=== PATIENT | male | born 1960 | race African-American/Black ===

== ENCOUNTER 2018-12-25 06:44 | Day surgery (SDC) | payer MEDICAID ==
--- NOTE | 2018-12-19 15:35 | Pre-Procedure Note/Attestation ---
Pre-Procedure Note/Attestation Complete Prior to Procedure Planned Procedure: right Procedure Narrative: Phaco with IOL Indications for Procedure Pre-Operative Diagnosis: cataract Attestation I attest that I discussed the nature of the procedure; its benefits; risks and complications; and alternatives (and the risks and benefits of such alternatives ), prior to the procedure, with the patient (or the patient's legal labor representative). I attest that, if there was a reasonable possibility of needing a blood transfusion, the patient (or the patient's legal labor representative) was given the [facility] standardized written summary, pursuant to the [place] Blood Safety Act ([place] Health and Safety Code # 1645, as amended). I attest that I re-evaluated the patient just prior to the surgery and that there has been no change in the patient's H&P, except as documented below: Francisco Vicente MD Dec 19, 2018 15:35
--- NOTE | 2018-12-19 15:36 | Opthalmology H&P ---
Ophthalmology H&P H&P Chief Complaint: decreased vision in right eye HPI Vision Affects Ability to: read, focus/use eyes together, manage personal affairs HPI Narrative blurry vision Exam Visual Acuity: OD CF OS 20/80 Tension: OD 20 OS 23 Eye Exam: normal OU: external exam, palpebral fissure-width, marginal reflex distance, levator function, corneas, anterior chambers; findings: lens - OD NS OS NS, fundus exam - MILD npdr ou, INCREASED cd ou Assessment/Plan Diagnosis: (1) Nuclear age-related cataract, right eye Treatment Plan: cataract extraction w/ lens implant Goals of Treatment: improvement of vision, enhance quality of life Attestation Attestation The risks and benefits of the surgery as well as alternative procedures were explained to the patient in detail. Francisco Vicente MD Dec 19, 2018 15:36
[~2018-12-25] VITALS: Ht 174 cm; Wt 99.8 kg
[~2018-12-25 06:44] MED LIST: ATORVASTATIN CA40 MG ORAL; GLIPIZIDE5 MG ORAL; LOSARTAN POTASS50 MG ORAL; METFORMIN HCL1000 M1 ORAL; WARFARIN SODIUM10 MG ORAL
[2018-12-25] MEDS ORDERED: Akten 3.5% 1ml Btl RIGHT EYE ONE (07:00)
[2018-12-25] MEDS ORDERED: Proparacaine 0.5% Opth Soln 15ml RIGHT EYE ONE (07:00)
[2018-12-25] MEDS ORDERED: Tetracaine 0.5% Opth 4ml Soln RIGHT EYE ONE (07:00)
[2018-12-25 09:25] VITALS: BP 144/86
[2018-12-25] MEDS: Tropicamide 1% Opth 15ml Soln RIGHT EYE SCH ×3 (09:28→09:45)
[2018-12-25] MEDS: Diclofenac Sod 0.1% Op Soln RIGHT EYE SCH ×3 (09:28→09:45)
[2018-12-25] MEDS: Tobramycin Op Soln 0.3% 5ml RIGHT EYE SCH ×3 (09:28→09:44)
[2018-12-25] MEDS: Cyclopentolate 1% Opth Sol 2ml RIGHT EYE SCH ×3 (09:28→09:45)
[2018-12-25] MEDS: Phenylephrine 10% Opth Soln 5ml RIGHT EYE SCH ×3 (09:28→09:45)
[2018-12-25] MEDS ORDERED: fentaNYL 100 mcg/2 mL IV ONE (11:30)
[2018-12-25] MEDS ORDERED: Midazolam 2mg/2ml Inj ONE (11:30)
[2018-12-25] MEDS ORDERED: Atropine Inj 1mg/10ml Syr IV PRN (12:00)
[2018-12-25] MEDS ORDERED: DiphenhydrAMINE 50mg/ml Inj IVP PRN (12:00)
[2018-12-25] MEDS ORDERED: LR 1000ml 1,000 ML IVLG SCH (12:00)
[2018-12-25] MEDS ORDERED: Midazolam 2mg/2ml Inj IVP PRN (12:00)
[2018-12-25] MEDS ORDERED: fentaNYL 100 mcg/2 mL IV PRN (12:00)
--- NOTE | 2018-12-25 12:00 | Anethesia Preoperative Eval ---
Anesthesia Pre-op PMH/ROS General Date of Evaluation: Dec 25, 2018 Time of Evaluation: 11:30 Anesthesiologist: bulmaro ASA Score: ASA 3 Mallampati Score Class I : Soft palate, uvula, fauces, pillars visible Class II: Soft palate, uvula, fauces visible Class III: Soft palate, base of uvula visible Class IV: Only hard plate visible Mallampati Classification: Class II Surgeon: neli Diagnosis: nuclear sclerotic cataract right eye Surgical Procedure: cataract extraction w/ iol implant right eye Anesthesia History: none Family History: no anesthesia problems Allergies: Coded Allergies: PENICILLINS (Verified Allergy, Unknown, "swells up", 12/25/18) Medications: see eMAR Patient NPO?: Yes Past Medical History Cardiovascular: Reports: HTN, other - dvt Endocrine: Reports: DM HEENT: Reports: glaucoma Hematology/Immune: Reports: DVT Musculoskeletal/Integumentary: Reports: OA Anesthesia Pre-op Phys. Exam Physician Exam Last Vital Signs Date Time Temp Pulse Resp B/P (MAP) Pulse Ox O2 Delivery O2 Flow Rate FiO2 12/25/18 09:30 Room Air 12/25/18 09:25 97.0 78 18 144/86 97 Constitutional: NAD Neurologic: CN 2-12 intact Cardiovascular: RRR Respiratory: CTA Gastrointestinal: S/NT/ND Airway Exam Mallampati Score: Class II MO: limited Neck: flexible TMD: 2fb ROM: limited Anesthesia Pre-op A/P Risk Assessment & Plan Assessment: asa3 Plan: mac Status Change Before Surgery: No Pre-Antibiotics Drug: Ivana Junior MD Dec 25, 2018 12:00
[2018-12-25 12:04] VITALS: BP 141/90
[2018-12-25 12:09] VITALS: BP 138/90
[2018-12-25 12:14] VITALS: BP 136/80
[2018-12-25 12:30] VITALS: BP 138/93
--- NOTE | 2018-12-25 12:30 | NUR ---
Surgery cancelled. Patient verbalized understanding and will have appointment with his commissions analyst as claimed. Denies discomfort and awaiting ride from his family.
[2018-12-25] MEDS ORDERED: BSS 15ml BTL ONE (13:26)
[2018-12-25] MEDS ORDERED: EPINEPHrine 1mg/1ml Amp ONE (13:26)
[2018-12-25] MEDS ORDERED: Sodium Hyaluronate 14 mg/ml 0.85ml ONE (13:26)
[2018-12-25] MEDS ORDERED: BSS 500ml btl ONE (13:26)
[2018-12-25] MEDS ORDERED: Povidone-Iodine 5% opth solution ONE (13:26)
--- NOTE | 2018-12-25 13:36 | Immediate Post-Op Evaluation ---
Immediate Post-Op Evalulation Immediate Post-Op Evalulation Procedure: aborted cataract extraction w/iol implant right eye Date of Evaluation: Dec 25, 2018 Time of Evaluation: 12:16 IV Fluids: 100ml lr Blood Products: none Estimated Blood Loss: negligible Blood Pressure Systolic: 141 Blood Pressure Diastolic: 90 Pulse Rate: 85 Respiratory Rate: 18 O2 Sat by Pulse Oximetry: 94 Temperature (Fahrenheit): 97.2 Pain Score (1-10): 0 Nausea: No Vomiting: No Complications none Patient Status: awake, reacts, patent Hydration Status: adequate Drug: Ivana Junior MD Dec 25, 2018 13:36
[2018-12-25 13:47] VITALS: BP 136/80
--- NOTE | 2018-12-25 13:47 | 48 Hour Post Anesthesia Eval ---
Post Anesthesia Evaluation Procedure: aborted cataract extraction w/iol implant right eye Date of Evaluation: Dec 25, 2018 Time of Evaluation: 12:18 Blood Pressure Systolic: 136 0: 80 Pulse Rate: 77 Respiratory Rate: 18 Temperature (Fahrenheit): 97.2 O2 Sat by Pulse Oximetry: 95 Airway: patent Nausea: No Vomiting: No Pain Intensity: 0 Hydration Status: adequate Cardiopulmonary Status: stable Mental Status/LOC: patient returned to baseline Post-Anesthesia Complications: na Follow-up care needed: N/A Ivana Hill MD Dec 25, 2018 13:47
--- NOTE | 2018-12-26 13:59 | Brief Operative Note ---
Immediate Post Operative Note Operative Note Chief Complaint: blurry vision Pre-op Diagnosis: cataract, OD Procedure: Phaco with IOL, OD Post-op Diagnosis: pseudophakia Post-op Diagnosis: same as pre-op Findings: consistent w/pre-op dx studies Surgeon: Cinthia Anesthesiologist: Ludy Anesthesia: MAC Specimen: none Complications: none Condition: stable Fluids: LR Estimated Blood Loss: none Drains: none Implant(s) used?: Yes Francisco Vicente MD Dec 26, 2018 13:59
--- NOTE | 2018-12-26 14:00 | Operative Note - PDOC ---
Operative Note Operative Note Date of Operation/Procedure: Dec 25, 2018 Chief Complaint: blurry vision Pre-op Diagnosis: cataract, OD Procedure: Phaco with IOL, OD Post-op Diagnosis: pseudophakia Post-op Diagnosis: same as pre-op Operative Findings: consistent w/pre-op dx studies Surgeon: Cinthia Anesthesiologist: Ludy Anesthesia: MAC Specimen: none Complications: none Condition: stable Fluids: LR Estimated Blood Loss: none Drains: none Implant(s) used?: Yes Indications for Procedure cataract Description of Procedure This patient has been complaining visually significant cataract in the affected eye with the best corrected visual acuity under moderate glare conditions worse. The patient complains of difficulties with glare in performing activities of daily living and wants to manage personal affairs with comfort and accuracy and see well enough to move with safety at home and outdoors. The risks, benefits and alternatives of the procedure were discussed with the patient in the office prior to scheduling surgery. All questions from the patient were answered after the surgical procedure was explained in detail. The risks of the procedure as explained to the patient include, but are not limited to, pain, infection, bleeding, loss of vision, retinal detachment, need for further surgery, loss of lens nucleus, double vision, etc. Alternative procedures were discussed which include, to do nothing or seek a second opinion. Informed consent for this procedure was obtained from the patient. The patient was referred to a primary care physician for a cardiopulmonary clearance prior to surgery, after proper evaluation was done patient was properly scheduled for outpatient surgery. The patient was brought to the operating room where the anesthesiologist established I.V. lines and cardiac monitoring leads. Mild intravenous sedation was administered. The patient was then prepared with a 5% solution of povidone -iodine to the conjunctival fornix and lashes, and a 5% solution of povidone- iodine to the lids and periorbital skin. The patient was then draped in the usual sterile fashion. A lid speculum was then placed in the operative eye. A keratome blade was then used to create a biplanar incision into the anterior chamber. Viscoelastics was then instilled into the anterior chamber. A capsulorrhexis was then fashioned with an utrata forceps. BSS and a G -27 cannula were then used for hydrodissecion and hydro delineation of the lens nucleus. Paracentesis incision was made at 3 o'clock with sharp blade. The phacoemulsification unit, after being properly adjusted and tested, was then used to emulsify the nucleus. Residual cortical material was aspirated with the irrigation and aspiration unit. [place]al[place] was then instilled into the anterior chamber. The corneal wound was then enlarged to the size of the optic with the stuart keratome blade. The intraocular lens was then inspected for right power and size and thought to be satisfactory. Then the lens was gently placed in the capsular bag. Positioning within the capsular bag was confirmed by direct visualization. Optic centration was accomplished with a Sinskey hook. Viscoelastics was removed from the anterior chamber using the irrigation and aspiration unit. The corneal wound was then tested for leaks and none were found. The lid speculum were then removed. Sponge and needle counts were correct. An eye patch and shield were placed over the operative eye. The patient was taken to the recovery room in stable condition. There were no complications. The patient tolerated the procedure well. The patient was then transferred to the ambulatory surgery unit in stable and satisfactory condition , was given detailed written instructions and asked to follow up in the office the next day. Francisco Vicente MD Dec 26, 2018 14:00
== END 2018-12-25 13:02 | disposition home or self-care (01) ==
LOC: SUR 06:44
DX: H25.11 Age-related nuclear cataract, right eye (principal); I10 Essential (primary) hypertension; E11.9 Type 2 diabetes mellitus without complications; M19.90 Unspecified osteoarthritis, unspecified site; H40.9 Unspecified glaucoma; Z88.0 Allergy status to penicillin; Z86.718 Personal history of other venous thrombosis and embolism; Z86.711 Personal history of pulmonary embolism
CPT/HCPCS: 66984; 82962; J0171; J2250; J3010; J3370; Z7512; 94003; 94150

== ENCOUNTER 2019-08-06 06:18 | Day surgery (SDC) | payer MEDICAID ==
--- NOTE | 2019-08-01 12:15 | Opthalmology H&P ---
Ophthalmology H&P H&P Chief Complaint: decreased vision in left eye HPI Vision Affects Ability to: read, manage personal affairs Past Ocular History: glaucoma, retinal problems - NPDR/ME OU HPI Narrative Blurry vision Exam Visual Acuity: OD 20/50 OS 20/80 Tension: OD 13 OS 15 Eye Exam: normal OU: external exam, palpebral fissure-width, marginal reflex distance, levator function, corneas, anterior chambers, lens - NS Cataracts OU, fundus exam - NPDR/ME OU; findings: lens - NS Cataracts OU, fundus exam - NPDR/ ME OU Assessment/Plan Treatment Plan: cataract extraction w/ lens implant Goals of Treatment: improvement of vision, enhance quality of life Attestation Attestation The risks and benefits of the surgery as well as alternative procedures were explained to the patient in detail. Francisco Vicente MD Aug 01, 2019 12:14
--- NOTE | 2019-08-01 12:17 | Pre-Procedure Note/Attestation ---
Pre-Procedure Note/Attestation Complete Prior to Procedure Planned Procedure: left Procedure Narrative: Cataract extraction with intraocular lens implant left eye Indications for Procedure Pre-Operative Diagnosis: Nuclear sclerotic cataract left eye Attestation I attest that I discussed the nature of the procedure; its benefits; risks and complications; and alternatives (and the risks and benefits of such alternatives ), prior to the procedure, with the patient (or the patient's legal chemical sales representative). I attest that, if there was a reasonable possibility of needing a blood transfusion, the patient (or the patient's legal chemical sales representative) was given the [facility] standardized written summary, pursuant to the [place] Blood Safety Act ([place] Health and Safety Code # 1645, as amended). I attest that I re-evaluated the patient just prior to the surgery and that there has been no change in the patient's H&P, except as documented below: Francisco Vicente MD Aug 01, 2019 12:17
[~2019-08-06] VITALS: Ht 175.3 cm; Wt 94.3 kg
[2019-08-06] VITALS (8 sets, daily range): BP systolic 123–132; BP diastolic 79–85
[2019-08-06] MEDS ORDERED: Akten 3.5% 1ml Btl LEFT EYE ONE (07:00)
[2019-08-06] MEDS ORDERED: Tetracaine 0.5% Opth 4ml Soln LEFT EYE ONE (07:00)
[2019-08-06] MEDS ORDERED: Proparacaine 0.5% Opth Soln 15ml LEFT EYE ONE (07:00)
[2019-08-06] MEDS ORDERED: XARELTO10 MG ORAL (07:28)
[2019-08-06] MEDS ORDERED: ASPIR 8181 MG ORAL (07:29)
[2019-08-06] MEDS: Phenylephrine 10% Opth Soln 5ml LEFT EYE SCH ×3 (07:34→07:54)
[2019-08-06] MEDS: Cyclopentolate 1% Opth Sol 2ml LEFT EYE SCH ×3 (07:34→07:54)
[2019-08-06] MEDS: Tobramycin Op Soln 0.3% 5ml LEFT EYE SCH ×3 (07:34→07:54)
[2019-08-06] MEDS: Tropicamide 1% Opth 15ml Soln LEFT EYE SCH ×3 (07:34→07:54)
[2019-08-06] MEDS: Diclofenac Sod 0.1% Op Soln LEFT EYE SCH ×3 (07:34→07:54)
[2019-08-06] MEDS ORDERED: Sterile Water Irrig 1000ml IRRIG ONE (10:00)
[2019-08-06] MEDS ORDERED: Dexamethasone 4mg/ml vial ONE (10:00)
[2019-08-06] MEDS ORDERED: Pred Forte 1% Opth Susp 1ml ONE (10:00)
[2019-08-06] MEDS ORDERED: LR 1000ml ONE (10:00)
[2019-08-06] MEDS ORDERED: Pilocarpine 1% Opth 15ml Soln ONE (10:00)
[2019-08-06] MEDS ORDERED: NS Irrig 1000ml ONE (10:00)
[2019-08-06] MEDS ORDERED: Lidocaine 1% MPF 10mg/ml 5ml ONE (10:04)
[2019-08-06] MEDS ORDERED: fentaNYL 100 mcg/2 mL IV ONE (10:04)
[2019-08-06] MEDS ORDERED: Polysporin Opth Oint 3.5gm ONE (10:11)
[2019-08-06] MEDS ORDERED: EPINEPHrine 1mg/1ml Amp ONE (10:11)
[2019-08-06] MEDS ORDERED: Lidocaine 4% Amp ONE (10:11)
[2019-08-06] MEDS ORDERED: Lidocaine 2% MPF 5ml Vial INJ ONE (10:11)
[2019-08-06] MEDS ORDERED: BSS 500ml btl ONE (10:11)
[2019-08-06] MEDS ORDERED: Carbachol 0.01% Op Soln 1.5ml vial ONE (10:11)
[2019-08-06] MEDS ORDERED: Sodium Hyaluronate 14 mg/ml 0.85ml ONE (10:12)
[2019-08-06] MEDS ORDERED: Povidone-Iodine 5% opth solution ONE (10:12)
[2019-08-06] MEDS ORDERED: Bupivacaine 0.75% 30ml vial INJ ONE (10:12)
[2019-08-06] MEDS ORDERED: BSS 15ml BTL ONE (10:12)
[2019-08-06] MEDS ORDERED: LR 1000ml 1,000 ML IVLG SCH (10:13)
--- NOTE | 2019-08-06 10:13 | Anethesia Preoperative Eval ---
Anesthesia Pre-op PMH/ROS General Date of Evaluation: Aug 06, 2019 Anesthesiologist: Robbie ASA Score: ASA 2 Mallampati Score Class I : Soft palate, uvula, fauces, pillars visible Class II: Soft palate, uvula, fauces visible Class III: Soft palate, base of uvula visible Class IV: Only hard plate visible Mallampati Classification: Class II Surgeon: Cinthia Diagnosis: left cataract Surgical Procedure: left cataract extraction with IOL Anesthesia History: none Family History: no anesthesia problems Allergies: Coded Allergies: PENICILLINS (Verified Allergy, Unknown, "swells up", 12/25/18) Medications: see eMAR Patient NPO?: Yes NPO Date: Aug 05, 2019 NPO Time: 22:00 Past Medical History Cardiovascular: Reports: HTN, other - HHLD; Denies: CAD, [place], valve dz, arrhythmia Pulmonary: Denies: asthma, COPD, KUN, other Gastrointestinal/Genitourinary: Reports: other - h/o PE; Denies: GERD, CRI, ESRD Neurologic/Psychiatric: Denies: dementia, CVA, depression/anxiety, TIA, other Endocrine: Reports: DM; Denies: hypothyroidism, steroids, other HEENT: Denies: cataract (L), cataract (R), glaucoma, [place] (L), [place] (R), other Hematology/Immune: Denies: anemia, DVT, bleeding disorder, other Musculoskeletal/Integumentary: Reports: OA; Denies: RA, DJD, DDD, edema, other Other: obesity PSxH Narrative: right arm orif Anesthesia Pre-op Phys. Exam Physician Exam Last Vital Signs Date Time Temp Pulse Resp B/P (MAP) Pulse Ox O2 Delivery O2 Flow Rate FiO2 08/06/19 08:09 Room Air 08/06/19 07:44 97.9 78 20 124/81 96 Constitutional: NAD Cardiovascular: RRR Respiratory: CTA Airway Exam Mallampati Score: Class III MO: limited ROM: limited Teeth: missing, broken Anesthesia Pre-op A/P Labs see chart Studies Pre-op Studies: EKG - sr Risk Assessment & Plan Assessment: ASA II Plan: MAC Status Change Before Surgery: No Pre-Antibiotics Drug: N/A Patience Kingston MD Aug 06, 2019 10:13
[2019-08-06] MEDS ORDERED: DiphenhydrAMINE 50mg/ml Inj IVP PRN (10:15)
--- NOTE | 2019-08-06 10:52 | Immediate Post-Op Evaluation ---
Immediate Post-Op Evalulation Immediate Post-Op Evalulation Procedure: Left cataract extraction with IOL Date of Evaluation: Aug 06, 2019 Time of Evaluation: 10:54 IV Fluids: 200 Blood Products: 0 Estimated Blood Loss: 0 Urinary Output: 0 Blood Pressure Systolic: 132 Blood Pressure Diastolic: 85 Pulse Rate: 58 Respiratory Rate: 16 O2 Sat by Pulse Oximetry: 95 Temperature (Fahrenheit): 97.3 Pain Score (1-10): 0 Nausea: No Vomiting: No Complications 0 Patient Status: awake, reacts, patent, none Hydration Status: adequate Drug: N/A Patience Kingston MD Aug 06, 2019 10:52
--- NOTE | 2019-08-06 10:53 | 48 Hour Post Anesthesia Eval ---
Post Anesthesia Evaluation Procedure: Left cataract extraction with IOL Date of Evaluation: Aug 06, 2019 Airway: patent Nausea: No Vomiting: No Pain Intensity: 0 Hydration Status: adequate Cardiopulmonary Status: at baseline Mental Status/LOC: patient returned to baseline Post-Anesthesia Complications: 0 Follow-up care needed: ready to discharge Patience Kingston MD Aug 06, 2019 10:52
--- NOTE | 2019-08-08 13:00 | Brief Operative Note ---
Immediate Post Operative Note Operative Note Chief Complaint: Blurry vision Pre-op Diagnosis: Nuclear sclerotic cataract left eye Procedure: Cataract extraction with IOL implant left eye Post-op Diagnosis: Pseudo Post-op Diagnosis: same as pre-op Findings: consistent w/pre-op dx studies Surgeon: Francisco Vicente MD Anesthesiologist: Patience Long MD Anesthesia: MAC Specimen: none Complications: none Condition: stable Fluids: LR Estimated Blood Loss: none Drains: none Implant(s) used?: Yes Francisco Vicente MD Aug 08, 2019 13:00
--- NOTE | 2019-08-08 13:04 | Operative Note - PDOC ---
Operative Note Operative Note Date of Operation/Procedure: Aug 06, 2019 Chief Complaint: Blurry vision Pre-op Diagnosis: Nuclear sclerotic cataract left eye Procedure: Cataract extraction with IOL implant left eye Post-op Diagnosis: Pseudo Post-op Diagnosis: same as pre-op Operative Findings: consistent w/pre-op dx studies Surgeon: Francisco Vicente MD Anesthesiologist: Patience Long MD Anesthesia: MAC Specimen: none Complications: none Condition: stable Fluids: LR Estimated Blood Loss: none Drains: none Implant(s) used?: Yes Description of Procedure This patient has been complaining visually significant cataract in the left eye with the best corrected visual acuity 20/80 under moderate glare conditions worse. The patient complains of difficulties reading small print and with glare and light sensitivity unable to perform some activities of daily living and wants to manage personal affairs with comfort and accuracy and see well enough to move with safety at home and outdoors. The risks, benefits and alternatives of the procedure were discussed with the patient in the office prior to scheduling surgery. All questions from the patient were answered after the surgical procedure was explained in detail. The risks of the procedure as explained to the patient include, but are not limited to, pain, infection, bleeding, loss of vision, retinal detachment, need for further surgery, loss of lens nucleus, double vision, etc. Alternative procedures were discussed which include, to do nothing or seek a second opinion. Informed consent for this procedure was obtained from the patient. The patient was referred to a primary care physician for a cardiopulmonary clearance prior to surgery, after proper evaluation was done patient was properly scheduled for outpatient surgery. The patient was brought to the operating room where the anesthesiologist established I.V. lines and cardiac monitoring leads. Mild intravenous sedation was administered. The patient was then prepared with a 5% solution of povidone -iodine to the conjunctival fornix and lashes, and a 5% solution of povidone- iodine to the lids and periorbital skin. The patient was then draped in the usual sterile fashion. A lid speculum was then placed in the operative eye. A keratome blade was then used to create a biplanar incision into the anterior chamber. Viscoelastics was then instilled into the anterior chamber. A 3-mm single pass clear corneal incision was made just anterior to the vascular arcade of the temporal limbus using a keratome. Anterior capsulorrhexis was created. The nucleus was hydrodissected and hydrodelineated, and was freely movable in the capsular bag. The nucleus was then phacoemulsified. Following the deep groove formation, the lens was split bimanually and epicortex removed under vacuum burst-mode phacoemulsification. Peripheral cortex was removed with the irrigation and aspiration handpiece. The capsular bag was expanded with viscoelastic. The intraocular lens was then inspected for right power and size and thought to be satisfactory. The implant was inspected under the microscope and found to be free of defects. The implant was inserted into the cartridge system under viscoelastic and placed in the capsular bag. The trailing haptic was positioned with the cartridge system. Viscoelastics was removed from the anterior chamber using the irrigation and aspiration unit. The corneal wound was then tested for leaks and none were found. The lid speculum were then removed. Sponge and needle counts were correct. An eye patch and shield were placed over the operative eye. The patient was taken to the recovery room in stable condition. There were no complications. The patient tolerated the procedure well. The patient was then transferred to the ambulatory surgery unit in stable and satisfactory condition , was given detailed written instructions and asked to follow up in the office the next day. Francisco Vicente MD Aug 08, 2019 13:04
== END 2019-08-06 12:55 | disposition home or self-care (01) ==
LOC: SUR 06:18
DX: H25.12 Age-related nuclear cataract, left eye (principal); I10 Essential (primary) hypertension; E11.9 Type 2 diabetes mellitus without complications; M19.90 Unspecified osteoarthritis, unspecified site; E66.9 Obesity, unspecified; Z88.0 Allergy status to penicillin; Z68.30 Body mass index [BMI] 30.0-30.9, adult
CPT/HCPCS: 66984; 82962; J0171; J1100; J3010; J3370; S0020; V2632; Z7512; 94003; 94150

== ENCOUNTER 2019-12-24 05:43 | Day surgery (SDC) | payer MEDICAID ==
--- NOTE | 2019-12-21 10:02 | Opthalmology H&P ---
Ophthalmology H&P H&P Chief Complaint: decreased vision in right eye HPI Vision Affects Ability to: read, manage personal affairs Past Ocular History: glaucoma, retinal problems - NPDR/ME OU HPI Narrative Blurry vision Exam Visual Acuity: OD 20/100 OS 20/60 Tension: OD 18 OS 18 Eye Exam: normal OU: external exam, palpebral fissure-width, marginal reflex distance, levator function, corneas, anterior chambers; findings: lens - NS Cataract OD, fundus exam - NPDR/ME OU Assessment/Plan Treatment Plan: cataract extraction w/ lens implant Goals of Treatment: improvement of vision, enhance quality of life Attestation Attestation The risks and benefits of the surgery as well as alternative procedures were explained to the patient in detail. Francisco Vicente MD Dec 21, 2019 10:02
--- NOTE | 2019-12-21 10:07 | Pre-Procedure Note/Attestation ---
Pre-Procedure Note/Attestation Complete Prior to Procedure Planned Procedure: right Procedure Narrative: Cataract extraction with IOL implant right eye Indications for Procedure Pre-Operative Diagnosis: Nuclear sclerotic cataract right eye Attestation I attest that I discussed the nature of the procedure; its benefits; risks and complications; and alternatives (and the risks and benefits of such alternatives ), prior to the procedure, with the patient (or the patient's legal food service representative). I attest that, if there was a reasonable possibility of needing a blood transfusion, the patient (or the patient's legal food service representative) was given the [facility] standardized written summary, pursuant to the [place] Blood Safety Act ([place] Health and Safety Code # 1645, as amended). I attest that I re-evaluated the patient just prior to the surgery and that there has been no change in the patient's H&P, except as documented below: Francisco Vicente MD Dec 21, 2019 10:07
[~2019-12-24] VITALS: Ht 172.7 cm; Wt 94.3 kg
[2019-12-24] VITALS (9 sets, daily range): BP systolic 132–151; BP diastolic 82–93
[~2019-12-24 05:43] MED LIST changes: +ASPIR 8181 MG ORAL; +XARELTO10 MG ORAL
[2019-12-24] MEDS ORDERED: Proparacaine 0.5% Opth Soln 15ml RIGHT EYE ONE (07:00)
[2019-12-24] MEDS ORDERED: Akten 3.5% 1ml Btl RIGHT EYE ONE (07:00)
[2019-12-24] MEDS ORDERED: Tetracaine 0.5% Opth 4ml Soln RIGHT EYE ONE (07:00)
[2019-12-24] MEDS: Phenylephrine 10% Opth Soln 5ml RIGHT EYE SCH ×3 (07:02→07:27)
[2019-12-24] MEDS: Tobramycin Op Soln 0.3% 5ml RIGHT EYE SCH ×3 (07:02→07:27)
[2019-12-24] MEDS: Diclofenac Sod 0.1% Op Soln RIGHT EYE SCH ×3 (07:02→07:27)
[2019-12-24] MEDS: Tropicamide 1% Opth 15ml Soln RIGHT EYE SCH ×3 (07:02→07:27)
[2019-12-24] MEDS: Cyclopentolate 1% Opth Sol 2ml RIGHT EYE SCH ×3 (07:04→07:27)
[2019-12-24] MEDS ORDERED: Lidocaine 1% MPF 10mg/ml 5ml ONE (08:47)
[2019-12-24] MEDS ORDERED: fentaNYL 100 mcg/2 mL IV ONE (08:48)
[2019-12-24] MEDS ORDERED: Midazolam 2mg/2ml Inj ONE (08:48)
[2019-12-24] MEDS ORDERED: Povidone-Iodine 5% opth solution ONE (08:51)
[2019-12-24] MEDS ORDERED: BSS 500ml btl ONE (08:51)
[2019-12-24] MEDS ORDERED: BSS 15ml BTL ONE ×2 (08:51→09:55)
[2019-12-24] MEDS ORDERED: EPINEPHrine 1mg/1ml Amp ONE ×2 (08:51→09:54)
[2019-12-24] MEDS ORDERED: Sodium Hyaluronate 10 mg/ml 0.85ml ONE ×2 (08:52→09:00)
--- NOTE | 2019-12-24 08:57 | Anethesia Preoperative Eval ---
Anesthesia Pre-op PMH/ROS General Date of Evaluation: Dec 24, 2019 Anesthesiologist: Robbie ASA Score: ASA 3 Mallampati Score Class I : Soft palate, uvula, fauces, pillars visible Class II: Soft palate, uvula, fauces visible Class III: Soft palate, base of uvula visible Class IV: Only hard plate visible Mallampati Classification: Class II Surgeon: Cinthia Diagnosis: Right catatract Surgical Procedure: Right cataract extraction with IOL Anesthesia History: none Family History: no anesthesia problems Allergies: Coded Allergies: PENICILLINS (Verified Allergy, Unknown, "swells up", 12/21/19) Medications: see eMAR Patient NPO?: Yes NPO Date: Dec 24, 2019 NPO Time: 00:00 Past Medical History Cardiovascular: Reports: HTN, other - HLD; Denies: CAD, [place], valve dz, arrhythmia Pulmonary: Denies: asthma, COPD, KUN, other Gastrointestinal/Genitourinary: Denies: GERD, CRI, ESRD, other Neurologic/Psychiatric: Denies: dementia, CVA, depression/anxiety, TIA, other Endocrine: Reports: DM; Denies: hypothyroidism, steroids, other HEENT: Denies: cataract (L), cataract (R), glaucoma, ZUNI (L), ZUNI (R), other Hematology/Immune: 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 Exam Physician Exam Last Vital Signs Date Time Temp Pulse Resp B/P (MAP) Pulse Ox O2 Delivery O2 Flow Rate FiO2 12/24/19 07:21 Room Air 12/24/19 07:12 97.3 18 18 132/85 95 Constitutional: NAD Cardiovascular: RRR Respiratory: CTA Airway Exam Mallampati Score: Class II MO: full ROM: full Anesthesia Pre-op A/P Labs see chart Studies Pre-op Studies: EKG - sr Risk Assessment & Plan Assessment: ASA III Plan: MAC Status Change Before Surgery: No Pre-Antibiotics Drug: N/A Patience Kingston MD Dec 24, 2019 08:57
[2019-12-24] MEDS ORDERED: Polysporin Oint 15gm TOPIC ONE (09:00)
[2019-12-24] MEDS ORDERED: Sterile Water Irrig 1000ml IRRIG ONE (09:00)
[2019-12-24] MEDS ORDERED: LR 1000ml ONE (09:00)
[2019-12-24] MEDS ORDERED: prednisoLONE acetate 1% Opth Susp 1ml ONE (09:00)
[2019-12-24] MEDS ORDERED: Dexamethasone 4mg/ml vial ONE (09:00)
[2019-12-24] MEDS ORDERED: NS Irrig 1000ml ONE (09:00)
[2019-12-24] MEDS ORDERED: Pilocarpine 1% Opth 15ml Soln ONE (09:00)
[2019-12-24] MEDS ORDERED: LR 1000ml 1,000 ML IVLG SCH (09:06)
[2019-12-24] MEDS ORDERED: DiphenhydrAMINE 50mg/ml Inj IVP PRN (09:15)
[2019-12-24] MEDS ORDERED: acetaZOLAMIDE 500mg Inj ONE (09:16)
[2019-12-24] MEDS ORDERED: Lidocaine 4% Amp 5ml ONE (09:55)
[2019-12-24] MEDS ORDERED: Carbachol 0.01% Op Soln 1.5ml vial ONE (09:55)
--- NOTE | 2019-12-24 09:55 | Immediate Post-Op Evaluation ---
Immediate Post-Op Evalulation Immediate Post-Op Evalulation Procedure: Right cataract extraction with IOL Date of Evaluation: Dec 24, 2019 Time of Evaluation: 09:57 IV Fluids: 200 Blood Products: 0 Estimated Blood Loss: min Urinary Output: 0 Blood Pressure Systolic: 144 Blood Pressure Diastolic: 92 Pulse Rate: 58 Respiratory Rate: 16 O2 Sat by Pulse Oximetry: 96 Temperature (Fahrenheit): 97.6 Pain Score (1-10): 0 Nausea: No Vomiting: No Complications 0 Patient Status: awake, reacts, patent, none Hydration Status: adequate Drug: N/a Patience Kingston MD Dec 24, 2019 09:55
--- NOTE | 2019-12-24 09:56 | 48 Hour Post Anesthesia Eval ---
Post Anesthesia Evaluation Procedure: Right cataract extraction with IOL Date of Evaluation: Dec 24, 2019 Airway: patent Nausea: No Vomiting: No Pain Intensity: 0 Hydration Status: adequate Cardiopulmonary Status: at baseline Mental Status/LOC: patient returned to baseline Post-Anesthesia Complications: 0 Follow-up care needed: ready to discharge Patience Kingston MD Dec 24, 2019 09:56
--- NOTE | 2019-12-25 16:58 | Brief Operative Note ---
Immediate Post Operative Note Operative Note Chief Complaint: Blurry vision Pre-op Diagnosis: Nuclear sclerotic cataract right eye Procedure: Cataract extraction with IOL implant right eye Post-op Diagnosis: Pseudo OD Findings: consistent w/pre-op dx studies Surgeon: Francisco Vicente MD Anesthesiologist: Patience Long MD Anesthesia: MAC Specimen: none Complications: none Condition: stable Fluids: LR Estimated Blood Loss: none Drains: none Implant(s) used?: Yes - IOL-OD Francisco Vicente MD Dec 25, 2019 16:58
--- NOTE | 2019-12-25 16:59 | Operative Note - PDOC ---
Operative Note Operative Note Date of Operation/Procedure: Dec 24, 2019 Chief Complaint: Blurry vision Pre-op Diagnosis: Nuclear sclerotic cataract right eye Procedure: Cataract extraction with IOL implant right eye Post-op Diagnosis: Pseudo OD Operative Findings: consistent w/pre-op dx studies Surgeon: Francisco Vicente MD Anesthesiologist: Patience Long MD Anesthesia: MAC Specimen: none Complications: none Condition: stable Fluids: LR Estimated Blood Loss: none Drains: none Implant(s) used?: Yes - IOL-OD Indications for Procedure Nuclear sclerotic cataract right eye Francisco Vicente MD Dec 25, 2019 16:59
--- NOTE | 2019-12-26 16:25 | Operative Note - PDOC ---
Operative Note Operative Note Date of Operation/Procedure: Dec 24, 2019 Chief Complaint: Blurry vision Pre-op Diagnosis: Nuclear sclerotic cataract right eye Procedure: Cataract extraction with IOL implant and sphincterotomy right eye Post-op Diagnosis: Pseudo OD Operative Findings: consistent w/pre-op dx studies Surgeon: Francisco Vicente MD Anesthesiologist: Patience Long MD Anesthesia: MAC Specimen: none Complications: none Condition: stable Fluids: LR Estimated Blood Loss: none Drains: none Implant(s) used?: Yes - IOL-OD Indications for Procedure Nuclear sclerotic cataract right eye Description of Procedure This patient has been complaining of visually significant cataract in the right eye with the best corrected visual acuity of 20/100 under moderate glare conditions worse. The patient complains of difficulties with glare in performing activities of daily living and wants to manage personal affairs with comfort and accuracy and see well enough to move with safety at home and outdoors. The risks, benefits and alternatives of the procedure were discussed with the patient in the office prior to scheduling surgery. All questions from the patient were answered after the surgical procedure was explained in detail. The risks of the procedure as explained to the patient include, but are not limited to, pain, infection, bleeding, loss of vision, retinal detachment, need for further surgery, loss of lens nucleus, double vision, etc. Alternative procedures were discussed which include, to do nothing or seek a second opinion. Informed consent for this procedure was obtained from the patient. The patient was referred to a primary care physician for a cardiopulmonary clearance prior to surgery, after proper evaluation was done patient was properly scheduled for outpatient surgery. The patient was brought to the operating room where the anesthesiologist established I.V. lines and cardiac monitoring leads. Mild intravenous sedation was administered. The patient was then prepared with a 5% solution of povidone -iodine to the conjunctival fornix and lashes, and a 5% solution of povidone- iodine to the lids and periorbital skin. The patient was then draped in the usual sterile fashion. A lid speculum was then placed in the operative eye. A keratome blade was then used to create a biplanar incision into the anterior chamber. Viscoelastics was then instilled into the anterior chamber. The pupil was not fully dilated, sphinctrectomy was done at 10,2,4 and 8 o' clock of the iris for better view of the surgical field. A capsulorrhexis was then fashioned with an utrata forceps. A G 27 cannula was used to hydrodissecte and hydro delineate the lens nucleus. Paracentesis incision was made at 3 o'clock with sharp blade. The phacoemulsification unit, after being properly adjusted and tested, was then used to emulsify the nucleus followed by aspiration and irrigation of residual cortical material. Healon was then instilled into the anterior chamber. The corneal wound was then enlarged to the size of the optic with the stuart keratome blade. The intraocular lens was then inspected for right power and size and thought to be satisfactory. Then the lens was gently placed in the capsular bag. Positioning within the capsular bag was confirmed by direct visualization. Optic centration was accomplished with a Sinskey hook. Viscoelastics was removed from the anterior chamber using the irrigation and aspiration unit. The corneal wound was then tested for leaks and none were found. The lid speculum were then removed. Sponge and needle counts were correct. An eye patch and shield were placed over the operative eye. The patient was taken to the recovery room in stable condition. There were no complications. The patient tolerated the procedure well. The patient was then transferred to the ambulatory surgery unit in stable and satisfactory condition , was given detailed written instructions and asked to follow up in the office the next day. Francisco Vicente MD Dec 26, 2019 16:25
== END 2019-12-24 11:25 | disposition home or self-care (01) ==
LOC: SUR 05:43
DX: H25.11 Age-related nuclear cataract, right eye (principal); I10 Essential (primary) hypertension; E78.5 Hyperlipidemia, unspecified; Z88.0 Allergy status to penicillin; E11.9 Type 2 diabetes mellitus without complications; M19.90 Unspecified osteoarthritis, unspecified site; Z86.718 Personal history of other venous thrombosis and embolism; Z86.711 Personal history of pulmonary embolism
CPT/HCPCS: 66984; 82962; J0171; J1100; J1120; J2250; J3010; J3370; J7120; V2632; Z7512; 94003; 94150